=== PATIENT | male | born 1945 | race Caucasian/White ===

== ENCOUNTER 2017-11-11 11:09 | Outpatient (CLI) | payer MEDICARE, SELFPAY ==
[2017-11-11 14:28] LABS: Anion Gap 7.3 mmol/L (3-11); BUN 22 mg/dL (7-18); CO2 27.7 mmol/L (21.0-32.0); Calcium 8.9 mg/dL (8.5-10.1); Chloride 104 mmol/L (98-107); Cholesterol 205 mg/dL (50-200); Glucose 98 mg/dL (70-100); HDL Cholesterol 71 mg/dL (40-60); LDL CHOLESTEROL 119 mg/dL (<100); Potassium 4.3 mmol/L (3.5-5.1); Sodium 139 mmol/L (136-145); Triglyceride 157 mg/dL (30-150)
[2017-11-12 08:58] LABS: PSA, Diagnostic 4.1 ng/ml (0-6.5)
== END 2017-11-11 11:29 ==
PROVIDERS: PCP Emergency Medicine; Visit Provider Urology
DX: E78.5 Hyperlipidemia, unspecified (principal); Z86.39 Personal history of other endocrine, nutritional and metabolic disease; R97.20 Elevated prostate specific antigen [PSA]
CPT/HCPCS: 36415; 80048; 80061; 83721; 84153

== ENCOUNTER 2017-11-15 15:25 | Outpatient (CLI) | payer MEDICARE, OTHER, SELFPAY ==
--- NOTE | 2017-11-15 14:20 | DI.RAD_ITS ---
SYMPTOM/DIAGNOSIS: LOW BACK PAIN, M48.00, SPINAL STENOSIS, M54.9, DORSALGIA LUMBAR SPINE: AP, lateral and bilateral oblique views. Comparison MRI is 07/27/15. Comparison xray is 12/02/08. Findings: There is again seen L 5 spondylolysis and grade I-II spondylolisthesis of L 5 on S 1. There are five lumbar type vertebral bodies. There is mild narrowing of the disc spaces at all levels of the lumbar spine. Vacuum discs are present at L 1-2, 2-3 and 3-4. There are endplate osteophytes at all levels of the lumbar spine. Degenerative changes of the facets are present throughout the lumbar spine, most marked at L 3-4 through L 5-S 1. No acute fractures or subluxations are present. Calcification is seen of the abdominal aorta. Incidental note is made of a right total hip replacement. IMPRESSION: Moderate degenerative changes throughout the lumbar spine. L 5 spondylolysis and grade I-II spondylolisthesis of L 5 on S 1.
== END 2017-11-15 15:45 ==
PROVIDERS: PCP Emergency Medicine; Visit Provider Emergency Medicine
DX: M54.5 Low back pain (principal); M48.07 Spinal stenosis, lumbosacral region; M47.817 Spondylosis without myelopathy or radiculopathy, lumbosacral region; M43.06 Spondylolysis, lumbar region; M43.17 Spondylolisthesis, lumbosacral region
CPT/HCPCS: 72110

== ENCOUNTER 2018-02-28 16:14 | Outpatient (REF) | payer MEDICARE, OTHER, SELFPAY ==
--- NOTE | 2018-02-28 14:20 | SKI_PTH ---
PATIENT: Arya Kaur LOC: [facility] U#:[id number] AGE/SX: 73/M ROOM: RE02/28/[address]: Parker Singletary DO : 1945 BED: DIS: 02/28/2018 SPEC #: [id number] RECD: 03/03/18 12:25 STATUS: AGUEDA ARTHUR #: [id number] IVONNE: 02/28/18 14:[address]: Parker Singletary DEPT: Surgical Specimen RECD BY: Chelsea Valenzuela Tissues: 1 - SKIN BIOPSY(SHAVE/PUNCH) Procedures: SKIN LEVEL 4 SPECIAL STAIN 1 Comments: [id number]
== END 2018-02-28 16:34 ==
LOC: LBN 16:14
PROVIDERS: PCP Emergency Medicine; Visit Provider Emergency Medicine
DX: L30.8 Other specified dermatitis (principal); L30.0 Nummular dermatitis
CPT/HCPCS: 88305; 88312

== ENCOUNTER 2018-03-08 11:19 | Emergency (ER) | payer MEDICARE, OTHER, SELFPAY ==
[2018-03-08 11:27] VITALS: BP 153/74; PULSE 64; RESP 16; TEMP 37; O2SAT 99
--- NOTE | 2018-03-08 11:33 | W.ED.GENAD ---
Discharge Plan Disposition Patient Disposition: HOME Condition: Fair Discharge Details Chief Complaint: EyeProblem Clinical Impression: Subconjunctival hemorrhage Primary Care Provider: Parker Singletary ED Provider: Mari Albrecht Home Meds and New Rx's Prescriptions: Continued tadalafil [Cialis] 10 MG tablet 10 mg PO PRN RF: 0 lisinopril 20 MG tablet 1.5 tab PO DAILY Qty: 135 RF: 4 amoxicillin 500 MG tablet 2 g PO ONCE Qty: 4 RF: 1 Varicella-Zoster Ge/As01b/Pf [Shingrix Vial Kit] 50 MCG/0.5 ML kit 50 mcg IM twice Qty: 2 RF: 1 allopurinol 100 mg tablet 100 mg PO DAILY Qty: 90 RF: 3 pravastatin [Pravachol] 20 mg tablet 20 mg PO DAILY Qty: 90 RF: 3 amlodipine 5 mg tablet 5 mg PO DAILY Qty: 90 RF: 3 triamcinolone acetonide 0.5 % ointment 1 applic TP BID Qty: 15 RF: 5 Discharge Instructions Instructions: Subconjunctival Hemorrhage (ED) Additional Instructions: Please contact [facility] on Saturday to schedule follow-up appointment this week to have your vision reassessed and further evaluation of your eye. If you develop eye pain, discharge, or change in your vision, headaches or other new/worsening symptoms please seek care urgently once again. Otherwise, this is a benign process that should absorb with time Referrals: Parker Singletary, [Primary Care Provider] - Discharge Data Discharge Date/Time-TO BE ENTERED AT DEPARTURE: 03/08/18 11:55 Medical Decision Making Patient is a 73-year-old male, coming by his , chief complaint of erythema to the left eye. He reports that he noticed this slightly yesterday but has greatly increased today. Denies any visual changes. Denies any pain in the eye. Denies any trauma. States that this came on after lifting a large amount of heavy snow. Denies any bleeding elsewhere, no hematuria, melena, bleeding of the gums. Is not anticoagulated. States that the eye has been slightly teary but otherwise asymptomatic. Has not been itchy or irritated patient does wear glasses at baseline. On exam, pupils are equal round and reactive. He does have a subconjunctival hemorrhage to the left eye along the medial aspect. No swelling is noted. Extraocular movements are intact with no discomfort elicited. Posterior chambers unremarkable, no hemorrhage in the anterior chamber. Visual acuity performed by nursing staff, left eye was noted to be worse than the right. However, we did have a baseline for the patient. She is not objectively noting his vision to be worse, is not having any discomfort, blurred vision, signs of infection, and low suspicion for acute ocular emergency. Rather, I feel the patient has a subconjunctival hemorrhage. I would like him to follow-up with his tailor garment fitter this week for reevaluation to reassess his vision. Patient was given information on subconjunctival hemorrhage when to seek care urgently once again. All his questions and concerns were addressed and he is in agreement this plan. HPI General Mode of arrival: ambulatory. Date/Time Provider Initiated Documentation: 03/08/18 11:31. Limitations to Documentation: no limitations. Information obtained by: patient and family. History of Present Illness 73 year old M presents to the emergency department with the chief complaint of redness left eye, described as mild (no pain), and is localized to the eyes. Patient started experiencing this day(s) (1) and it has been constant. No relieving factors improve symptom(s), No exacerbating factors reported . Patient notes denies chest pain, cough, fever/chills, loss of appetite, rash, shortness of breath and other (denies visual changes). Patient did receive the following treatments prior to arrival, none Related Data Home Medications Medication Instructions Recorded Confirmed tadalafil [Cialis] 10 mg PO PRN 07/22/12 03/10/18 lisinopril 1.5 tab PO DAILY #135 tab-cap 10/16/16 03/10/18 amoxicillin 2 g PO ONCE #4 tab-cap 06/10/17 03/10/18 allopurinol 100 mg tablet 100 mg PO DAILY #90 tab 10/22/17 03/10/18 pravastatin 20 mg tablet 20 mg PO DAILY #90 tab 10/22/17 03/10/18 amlodipine 5 mg tablet 5 mg PO DAILY #90 tab 10/23/17 03/10/18 triamcinolone acetonide 0.5 % 1 applic TP BID #15 gm 03/06/18 03/10/18 topical ointment Previous Rx's Medication Instructions Recorded amoxicillin 2 g PO ONCE #4 tab-cap 06/10/17 allopurinol 100 mg tablet 100 mg PO DAILY #90 tab 10/22/17 pravastatin 20 mg tablet 20 mg PO DAILY #90 tab 10/22/17 amlodipine 5 mg tablet 5 mg PO DAILY #90 tab 10/23/17 triamcinolone acetonide 0.5 % 1 applic TP BID #15 gm 03/06/18 topical ointment Allergies Allergy/AdvReac Type Severity Reaction Status Date / Time No Known Allergies Allergy Verified 03/10/18 13:46 General Stated Complaint: EyeProblem CARMEN: 4 Review of Systems Constitutional Reports as per HPI, Denies chills, Denies fever(s) and Denies headache(s) Eyes Reports as per HPI, Denies blurry vision, Denies change in vision, Denies diplopia, Denies eye discharge, Denies floaters, Denies irritation, Denies itchy eyes, Denies loss of peripheral vision, Denies eye pain, Reports requires corrective lenses, Denies seeing flashes and Denies photophobia ENT Denies headache(s) Cardiovascular Reports as per HPI, Denies chest pain and Denies dyspnea Respiratory Denies cough and Denies dyspnea Gastrointestinal Reports as per HPI, Denies abdominal pain, Denies change in bowel habits, Denies nausea and Denies vomiting Integumentary/Breasts Reports as per HPI and Denies rash Neurologic Denies headache(s) Allergic/Immunologic Denies itchy eyes [facility] Medical History Tubular adenoma of colon (Acute 04/22/17) Spinal stenosis (Acute) Sensorineural hearing loss (Acute 12/20/14) Raised prostate specific antigen (Acute) Primary osteoarthritis of right hip (Acute 11/07/15) Mixed conductive and sensorineural hearing loss of right ear (Acute 12/20/14) Malignant neoplasm of skin (Acute) Hyperlipidemia (Acute) History of tobacco use (Acute) Hiatal hernia (Acute) Hemorrhoids (Acute) History of tobacco use (Acute) Gout (Acute) Essential hypertension (Acute 01/27/13) Surgical History Appendectomy Arthroplasty of knee (~1997) Back surgery Colonoscopy - MAC (04/22/17) Skin Cancer Removal Total replacement of hip Vasectomy Family History Mother No problems noted. Father Heart disease Neoplasm Brother No problems noted. Son No problems noted. Son No problems noted. Daughter No problems noted. Daughter No problems noted. Social History current occupational status: employed current occupation: Professor pets and animals: Yes pets and animals: cat(s) and dog(s) frequency: 1-2 times per week duration: 45-60 minutes/day Smoking/Tobacco Use Status: Former Tobacco Use passive smoking exposure: No alcohol intake: current alcohol intake frequency: 0-2 drinks per day substance use type: does not use special cortes needs: No Exam Const General: cooperative, healthy appearing, comfortable, no acute distress, well developed and well groomed Nutritional Appearance: average body habitus and well nourished Orientation: alert and awake HENMT Head: normal to inspection, normocephalic and atraumatic Ears: hearing grossly normal bilaterally, external ears normal and TM's normal bilaterally General nose exam: external nose normal and nares normal Face and sinus: normal facial exam, sinuses nontender and face symmetric Mouth: oral mucosae normal, lip normal, tongue normal, oropharynx normal and moist mucous membranes Teeth and gingiva: dentition normal Throat: posterior oropharynx normal, tonsils normal and uvula midline Eyes Visual Meehan: normal visual meehan by confrontation Alignment and Position: alignment normal Periorbital: periorbital findings normal Eyelids: eyelids normal Conjunctivae: conjunctival abnormality left subconjunctival hemorrhage (medial inferior aspect) Cornea: corneas normal Pupils: PERRL, normal by confrontation and accommodation normal EOM: EOM intact bilaterally Direct ophthalmoscopy: normal light reflex, no papilledema, fundi normal bilaterally and anterior chamber normal Neck Neck: normal visual inspection, full ROM, no lymphadenopathy and no meningeal signs Resp Effort & Inspection: normal respiratory effort, able to speak in complete sentences and no respiratory distress Auscultation: clear to auscultation bilaterally, no rales, no rhonchi and no wheezes Cardio Rate: regular rate Rhythm: regular rhythm Heart Sounds: S1 normal and S2 normal Skin General skin exam: no rashes or lesions noted Neuro General: alert and awake Cognition: normal cognition Speech: speech normal Gait: normal gait Psych Appearance: grossly normal and well kempt Mental Status: mental status grossly normal Speech and Movement: speech and movement normal Course Vital Signs Temperature 37 C 03/08/18 11:27 Pulse 64 03/08/18 11:27 Respiratory Rate 16 03/08/18 11:27 Blood Pressure 153/74 H 03/08/18 11:27 Pulse Oximetry 99 03/08/18 11:27 Temperature 37 C 03/08/18 11:27 Temperature Source Temporal Artery Scan 03/08/18 11:27 Pulse 64 03/08/18 11:27 Respiratory Rate 16 03/08/18 11:27 Blood Pressure 153/74 H 03/08/18 11:27 Blood Pressure Position Sitting 03/08/18 11:27 Pulse Oximetry 99 03/08/18 11:27 Oxygen Delivery Method Room Air 03/08/18 11:27 Oxygen Flow Rate 0 03/08/18 11:27 Pain Level 0 03/08/18 11:27
--- NOTE | 2018-03-08 11:48 | ED.GENADUL_ITS ---
Discharge Plan Disposition Patient Disposition: HOME Condition: Fair Discharge Details Chief Complaint: EyeProblem Clinical Impression: Subconjunctival hemorrhage Primary Care Provider: Parker Singletary ED Provider: Mari Albrecht Home Meds and New Rx's Prescriptions: Continued tadalafil [Cialis] 10 MG tablet 10 mg PO PRN RF: 0 lisinopril 20 MG tablet 1.5 tab PO DAILY Qty: 135 RF: 4 amoxicillin 500 MG tablet 2 g PO ONCE Qty: 4 RF: 1 Varicella-Zoster Ge/As01b/Pf [Shingrix Vial Kit] 50 MCG/0.5 ML kit 50 mcg IM twice Qty: 2 RF: 1 allopurinol 100 mg tablet 100 mg PO DAILY Qty: 90 RF: 3 pravastatin [Pravachol] 20 mg tablet 20 mg PO DAILY Qty: 90 RF: 3 amlodipine 5 mg tablet 5 mg PO DAILY Qty: 90 RF: 3 triamcinolone acetonide 0.5 % ointment 1 applic TP BID Qty: 15 RF: 5 Discharge Instructions Instructions: Subconjunctival Hemorrhage (ED) Additional Instructions: Please contact [facility] on Saturday to schedule follow-up appointment this week to have your vision reassessed and further evaluation of your eye. If you develop eye pain, discharge, or change in your vision, headaches or other new/worsening symptoms please seek care urgently once again. Otherwise, this is a benign process that should absorb with time Referrals: Parker Singletary, [Primary Care Provider] - Discharge Data Discharge Date/Time-TO BE ENTERED AT DEPARTURE: 03/08/18 11:55 Medical Decision Making Patient is a 73-year-old male, coming by his , chief complaint of erythema to the left eye. He reports that he noticed this slightly yesterday but has greatly increased today. Denies any visual changes. Denies any pain in the eye. Denies any trauma. States that this came on after lifting a large amount of heavy snow. Denies any bleeding elsewhere, no hematuria, melena, bleeding of the gums. Is not anticoagulated. States that the eye has been slightly teary but otherwise asymptomatic. Has not been itchy or irritated patient does wear glasses at baseline. On exam, pupils are equal round and reactive. He does have a subconjunctival hemorrhage to the left eye along the medial aspect. No swelling is noted. Extraocular movements are intact with no discomfort elicited. Posterior andrew mbers unremarkable, no hemorrhage in the anterior chamber. Visual acuity performed by nursing staff, left eye was noted to be worse than the right. However, we did have a baseline for the patient. She is not objectively noting his vision to be worse, is not having any discomfort, blurred vision, signs of infection, and low suspicion for acute ocular emergency. Rather, I feel the patient has a subconjunctival hemorrhage. I would like him to follow-up with his health assessment and treatment teacher this week for reevaluation to reassess his vision. Patient was given information on subconjunctival hemorrhage when to seek care urgently once again. All his questions and concerns were addressed and he is in agreement this plan. HPI General Mode of arrival: ambulatory . Date/Time Provider Initiated Documentation: 03/08/18 11:31 . Limitations to Documentation: no limitations . Information obtained by: patient and family . History of Present Illness 73 year old M presents to the emergency department with the chief complaint of redness left eye, described as mild (no pain), and is localized to the eyes. Patient started experiencing this day(s) (1) and it has been constant. No relieving factors improve symptom(s), No exacerbating factors reported . Patient notes denies chest pain, cough, fever/chills, loss of appetite, rash, shortness of breath and other (denies visual changes). Patient did receive the following treatments prior to arrival, none Related Data Home Medications Medication Instructions Recorded Confirmed tadalafil [Cialis] 10 mg PO PRN 07/22/12 03/10/18 lisinopril 1.5 tab PO DAILY #135 tab-cap 10/16/16 03/10/18 amoxicillin 2 g PO ONCE #4 tab-cap 06/10/17 03/10/18 allopurinol 100 mg tablet 100 mg PO DAILY #90 tab 10/22/17 03/10/18 pravastatin 20 mg tablet 20 mg PO DAILY #90 tab 10/22/17 03/10/18 amlodipine 5 mg tablet 5 mg PO DAILY #90 tab 10/23/17 03/10/18 triamcinolone acetonide 0.5 % 1 applic TP BID #15 gm 03/06/18 03/10/18 topical ointment Previous Rx's Medication Instructions Recorded amoxicillin 2 g PO ONCE #4 tab-cap 06/10/17 allopurinol 100 mg tablet 100 mg PO DAILY #90 tab 10/22/17 pravastatin 20 mg tablet 20 mg PO DAILY #90 tab 10/22/17 amlodipine 5 mg tablet 5 mg PO DAILY #90 tab 10/23/17 triamcinolone acetonide 0.5 % 1 applic TP BID #15 gm 03/06/18 topical ointment Allergies Allergy/AdvReac Type Severity Reaction Status Date / Time No Known Allergies Allergy Verified 03/10/18 13:46 General Stated Complaint: EyeProblem CARMEN: 4 Review of Systems Constitutional Reports as per HPI, Denies chills, Denies fever(s) and Denies headache(s) Eyes Reports as per HPI, Denies blurry vision, Denies change in vision, Denies diplopia, Denies eye discharge, Denies floaters, Denies irritation, Denies itchy eyes, Denies loss of peripheral vision, Denies eye pain, Reports requires corrective lenses, Denies seeing flashes and Denies photophobia ENT Denies headache(s) Cardiovascular Reports as per HPI, Denies chest pain and Denies dyspnea Respiratory Denies cough and Denies dyspnea Gastrointestinal Reports as per HPI, Denies abdominal pain, Denies change in bowel habits, Denies nausea and Denies vomiting Integumentary/Breasts Reports as per HPI and Denies rash Neurologic Denies headache(s) Allergic/Immunologic Denies itchy eyes [facility] Medical History Tubular adenoma of colon (Acute 04/22/17) Spinal stenosis (Acute) Sensorineural hearing loss (Acute 12/20/14) Raised prostate specific antigen (Acute) Primary osteoarthritis of right hip (Acute 11/07/15) Mixed conductive and sensorineural hearing loss of right ear (Acute 12/20/14) Malignant neoplasm of skin (Acute) Hyperlipidemia (Acute) History of tobacco use (Acute) Hiatal hernia (Acute) Hemorrhoids (Acute) History of tobacco use (Acute) Gout (Acute) Essential hypertension (Acute 01/27/13) Surgical History Appendectomy Arthroplasty of knee (~1997) Back surgery Colonoscopy - MAC (04/22/17) Skin Cancer Removal Total replacement of hip Vasectomy Family History Mother No problems noted. Father Heart disease Neoplasm Brother No problems noted. Son No problems noted. Son No problems noted. Daughter No problems noted. Daughter No problems noted. Social History current occupational status: employed current occupation: Professor pets and animals: Yes pets and animals: cat(s) and dog(s) frequency: 1-2 times per week duration: 45-60 minutes/day Smoking/Tobacco Use Status: Former Tobacco Use passive smoking exposure: No alcohol intake: current alcohol intake frequency: 0-2 drinks per day substance use type: does not use special cortes needs: No Exam Const General: cooperative, healthy appearing, comfortable, no acute distress, well developed and well groomed Nutritional Appearance: average body habitus and well nourished Orientation: alert and awake HENMT Head: normal to inspection, normocephalic and atraumatic Ears: hearing grossly normal bilaterally, external ears normal and TM's normal bilaterally General nose exam: external nose normal and nares normal Face and sinus: normal facial exam, sinuses nontender and face symmetric Mouth: oral mucosae normal, lip normal, tongue normal, oropharynx normal and moist mucous membranes Teeth and gingiva: dentition normal Throat: posterior oropharynx normal, tonsils normal and uvula midline Eyes Visual Meehan: normal visual meehan by confrontation Alignment and Position: alignment normal Periorbital: periorbital findings normal Eyelids: eyelids normal Conjunctivae: conjunctival abnormality left subconjunctival hemorrhage (medial inferior aspect) Cornea: corneas normal Pupils: PERRL, normal by confrontation and accommodation normal EOM: EOM intact bilaterally Direct ophthalmoscopy: normal light reflex, no papilledema, fundi normal bilaterally and anterior chamber normal Neck Neck: normal visual inspection, full ROM, no lymphadenopathy and no meningeal signs Resp Effort & Inspection: normal respiratory effort, able to speak in complete sentences and no respiratory distress Auscultation: clear to auscultation bilaterally, no rales, no rhonchi and no wheezes Cardio Rate: regular rate Rhythm: regular rhythm Heart Sounds: S1 normal and S2 normal Skin General skin exam: no rashes or lesions noted Neuro General: alert and awake Cognition: normal cognition Speech: speech normal Gait: normal gait Psych Appearance: grossly normal and well kempt Mental Status: mental status grossly normal Speech and Movement: speech and movement normal Course Vital Signs Temperature 37 C 03/08/18 11:27 Pulse 64 03/08/18 11:27 Respiratory Rate 16 03/08/18 11:27 Blood Pressure 153/74 H 03/08/18 11:27 Pulse Oximetry 99 03/08/18 11:27 Temperature 37 C 03/08/18 11:27 Temperature Source Temporal Artery Scan 03/08/18 11:27 Pulse 64 03/08/18 11:27 Respiratory Rate 16 03/08/18 11:27 Blood Pressure 153/74 H 03/08/18 11:27 Blood Pressure Position Sitting 03/08/18 11:27 Pulse Oximetry 99 03/08/18 11:27 Oxygen Delivery Method Room Air 03/08/18 11:27 Oxygen Flow Rate 0 03/08/18 11:27 Pain Level 0 03/08/18 11:27
== END 2018-03-08 11:55 | disposition home or self-care (01) ==
PROVIDERS: Emergency Provider Physician Assistant; PCP Emergency Medicine
DX: H11.32 Conjunctival hemorrhage, left eye (principal)
CPT/HCPCS: 99282

== ENCOUNTER 2018-03-12 10:44 | Outpatient (CLI) | payer MEDICARE, OTHER, SELFPAY ==
[2018-03-12 11:06] LABS: Absolute Basophil Count 0.02 k/cumm (0.0-0.2); Absolute Eosinophil Count 0.09 k/cumm (0.0-0.7); Absolute Lymphocyte Count 1.45 k/cumm (1.2-3.4); Absolute Neutrophil Count 3.19 k/cumm (1.2-6.7); Basophils % 0.4; Eosinophils % 1.7; HCT 41.8 % (40.0-50.0); HGB 14.2 g/dL (13.5-17.5); Lymphocytes % 27.1; Mean Corpuscular Hemoglobin 30.5 pg (27.0-33.0); Mean Corpuscular Volume 89.9 fL (80-95); Mean Platelet Volume 10.6 fL (8.0-11.0); Monocytes % 11.2; Neutrophils % 59.6; Platelet Count 167 x1000/uL (130-400); RBC 4.65 m/cumm (4.50-6.00); RBC Distribution Width 13.9 % (11.8-14.1); White Blood Cell Count 5.35 k/cumm (4.4-10.8)
[2018-03-12 11:20] LABS: PTT Activated 24.2 sec (21.0-31.4); Prothrombin Time 9.6 sec (9.3-11.0)
[2018-03-12 11:42] LABS: ESR 12 MM/HR (1-20)
[2018-03-12 11:55] LABS: ALT 41 U/L (12-78); AST 30 U/L (15-37); Albumin 4.2 g/dL (3.4-5.0); Alkaline Phosphatase 77 U/L (46-116); Anion Gap 8.6 mmol/L (3-11); BUN 22 mg/dL (7-18); Bilirubin, Total 0.4 mg/dL (0.2-1.0); CO2 29.4 mmol/L (21.0-32.0); CREATININE 0.91 mg/dL (0.70-1.30); Calcium 9.8 mg/dL (8.5-10.1); Chloride 103 mmol/L (98-107); Glucose 95 mg/dL (70-100); Potassium 4.2 mmol/L (3.5-5.1); Sodium 141 mmol/L (136-145); Total Protein 7.6 g/dL (6.4-8.2)
== END 2018-03-12 11:04 ==
PROVIDERS: PCP Emergency Medicine; Visit Provider Internal Medicine
DX: D64.9 Anemia, unspecified (principal); I10 Essential (primary) hypertension; E78.5 Hyperlipidemia, unspecified; R42 Dizziness and giddiness; R41.3 Other amnesia; H11.32 Conjunctival hemorrhage, left eye
CPT/HCPCS: 36415; 80053; 85652; 84443; 85025; 85610; 85730

== ENCOUNTER 2018-03-13 00:47 | Outpatient (CLI) | payer MEDICARE, OTHER, SELFPAY ==
--- NOTE | 2018-03-13 13:30 | DI.CT_ITS ---
SYMPTOM/DIAGNOSIS: ? TIA, MEMORY LOSS, R41.[address]: There are no prior comparison exams. No intracranial hemorrhage, mass or infarct is seen. There is mild frontal atrophy. The ventricles are normal in size. There are no visible white matter changes. There is no evidence of skull fracture. The sinuses and mastoid air cells appear clear where visualized. IMPRESSION: Negative head CT. CTA HEAD AND NECK: CT angiography was performed with multi slice acquisition and multi planar and 3D reconstruction. Images were performed from the aortic arch through the skull vertex after IV contrast. The proximal left common artery is quite tortuous. There is calcification at the left common carotid bulb but no significant stenosis. There is a small amount of calcification at the proximal left internal carotid artery. The proximal portion of the left internal carotid artery is also quite tortuous. There is calcification at the origin of both vertebral arteries. The left vertebral artery is quite tortuous proximally. No stenosis, occlusion or dissection is seen. There is mild calcification of the left common carotid artery and at the left common carotid bulb. The proximal left internal carotid artery also shows mild calcification but no significant visible stenosis. The mid right internal carotid artery is tortuous. The [place] vasculature appears intact. The orbits are unremarkable. The lung apices are clear. The thyroid, submandibular and parotid glands are unremarkable. There are degenerative disc changes greatest at C 3-4 through C 5-6. Facet degenerative changes are also present. IMPRESSION: Mild scattered calcified plaque. No significant stenosis of the common, internal carotid arteries or vertebral arteries. The [place] vasculature appears intact.
[2018-03-13] MEDS: Omnipaque 350 MG/ML 100 ML BTL IJ (14:15)
[2018-03-13] MEDS: Normal Saline Flush 10 ML SYR IVP (14:16)
== END 2018-03-13 01:07 ==
PROVIDERS: PCP Emergency Medicine; Visit Provider Internal Medicine
DX: R41.3 Other amnesia (principal); I77.89 Other specified disorders of arteries and arterioles
CPT/HCPCS: 70496; 70498; J3490

== ENCOUNTER 2018-03-21 10:16 | Outpatient (CLI) | payer MEDICARE, OTHER, SELFPAY ==
[2018-03-21 13:23] LABS: Folate 16.5 ng/mL (8.6-20.0)
[2018-03-21 13:46] LABS: ESR 10 MM/HR (1-20)
[2018-03-21 14:03] LABS: Vitamin B12 441 pg/mL (193-986)
[2018-03-21 14:16] LABS: C-Reactive Protein 0.12 mg/dL (0.0-0.3)
[2018-03-24 12:35] LABS: Lyme Ab w Rflx to Lyme Confirm Negative
[2018-03-24 14:00] LABS: Albumin 61.7 % (55.8-66.1); Total Protein 7.1 g/dl (6.3-8.2)
== END 2018-03-21 10:36 ==
PROVIDERS: PCP Emergency Medicine; Visit Provider Emergency Medicine
DX: E11.9 Type 2 diabetes mellitus without complications (principal); G93.40 Encephalopathy, unspecified; R07.1 Chest pain on breathing; M25.50 Pain in unspecified joint
CPT/HCPCS: 36415; 85652; 82607; 82746; 83036; 84165; 86140; 86618

== ENCOUNTER 2018-03-28 01:43 | Outpatient (CLI) | payer MEDICARE, OTHER, SELFPAY ==
--- NOTE | 2018-03-28 08:43 | DI.MRI_ITS ---
SYMPTOM/DIAGNOSIS: ENCEPHALOPATHY, ? CEREBELLAR INFARCT, G93.40 BRAIN MRI: Pre and post contrast examination was performed. Comparison CT scan is 03/13/18. There is prominence of the ventricles and sulci consistent with the patient's age. The diffusion weighted images show no evidence of an acute infarct. The gradient images show no evidence of intracranial hemorrhage. No intracranial mass is identified. There is a normal flow void present in the [place]. The pituitary gland appears grossly unremarkable. The visualized paranasal sinuses are clear. The orbits and retro-orbital soft tissues are grossly unremarkable. Following contrast administration, no enhancing lesion is identified. IMPRESSION: No evidence of an intracranial mass or acute infarct.
[2018-03-28] MEDS: Gadoterate meglumine 20 ML VIAL 17 ML IVP (09:32)
== END 2018-03-28 02:03 ==
PROVIDERS: PCP Emergency Medicine; Visit Provider Emergency Medicine
DX: G93.40 Encephalopathy, unspecified (principal)
CPT/HCPCS: 70553

== ENCOUNTER 2018-04-02 00:44 | Outpatient (CLI) | payer MEDICARE, OTHER, SELFPAY ==
--- NOTE | 2018-04-02 07:30 | MERGE_ITS ---
*[facility]* *[facility]* [address] [place] [address] Date of study: 04/02/2018 Transthoracic Echocardiography M-mode, complete 2D, complete spectral Doppler, and color Doppler *STUDY CONCLUSIONS* Summary: 1. Left ventricle: The cavity size was normal. Systolic function was normal. The estimated ejection fraction was 55-60%. Diastolic parameters were normal. There was no evidence of elevated ventricular filling pressure by Doppler parameters. 2. Aortic valve: There was mild regurgitation. 3. Mitral valve: There was mild regurgitation. 4. Right ventricle: The cavity size was mildly dilated. Systolic function was normal. 5. Atrial septum: No defect or patent foramen ovale was identified. 6. Pulmonary arteries: Pulmonary systolic pressure was in the range of 25mm Hg to 35mm Hg. 7. Inferior vena cava: The vessel was patent and normal in size. The respirophasic diameter changes were in the normal range (greater than or equal to 50%), consistent with normal central venous pressure. *PATIENT PRESENTATION* Height: 180.3cm ((71in) ) S/D Pressure: 146 / 64 Weight: 81.6kg ((179.6lb) ) BSA: 2.03m^2 Test start time: 07:30 AM. Test stop time: 08:30 AM. CONSULTING Parker Singletary ORDERING Parker Singletary REFERRING Parker Singletary REFERRING Efren Navarrete PERFORMING Unknown PERFORMING [facility] GEOSPATIAL SYSTEMS INTEGRATOR RT Diana (R)(CT), OLIVIA *PROCEDURE DATA* Procedure information: The patient was identified by two identifiers. This study was interpreted by [facility]. Pertinent images and digital data are archived for permanent storage and are available for subsequent review. No prior study was available for comparison. Study status: Routine. Transthoracic echocardiography. M-mode, complete 2D, complete spectral Doppler, and color Doppler. A Transthoracic Echocardiogram was performed. Scanning was performed from the parasternal, apical, subcostal, and suprasternal notch acoustic windows. Images were obtained using an [id number] cardiac ultrasound machine. Image quality was good. Study completion: The patient tolerated the procedure well. History: PMH: Acute encephalopathy, shortness of breath. *CARDIAC ANATOMY* Left ventricle: The cavity size was normal. Systolic function was normal. The estimated ejection fraction was 55-60%. The tissue Doppler parameters were normal. Diastolic parameters were normal. There was no evidence of elevated ventricular filling pressure by Doppler parameters. Aortic valve: Trileaflet. Doppler: There was no stenosis. There was mild regurgitation. VTI ratio of LVOT to aortic valve: 0.65. Valve area (VTI): 2.3cm^2. Indexed valve area (VTI): 1.1cm^2/m^2. Peak velocity ratio of LVOT to aortic valve: 0.6. Valve area (Vmax): 2.1cm^2. Indexed valve area (Vmax): 1.1cm^2/m^2. Mean velocity ratio of LVOT to aortic valve: 0.63. Valve area (Vmean): 2.3cm^2. Indexed valve area (Vmean): 1.1cm^2/m^2. Mean gradient (S): 5.6mm Hg. Peak gradient (S): 10.1mm Hg. Aorta: Aortic root: The aortic root was normal in size. Ascending aorta: The ascending aorta was mildly dilated. Mitral valve: Doppler: There was no evidence for stenosis. There was mild regurgitation. Valve area by pressure half-time: 2.9cm^2. Indexed valve area by pressure half-time: 1.4cm^2/m^2. Left atrium: The atrium was normal in size. Atrial septum: No defect or patent foramen ovale was identified. Right ventricle: The cavity size was mildly dilated. Systolic function was normal. Pulmonic valve: Doppler: There was no evidence for stenosis. There was mild regurgitation. Peak gradient (S): 4.5mm Hg. Tricuspid valve: Doppler: There was mild regurgitation. Pulmonary artery: Poorly visualized. Pulmonary systolic pressure was in the range of 25mm Hg to 35mm Hg. Right atrium: The atrium was normal in size. Pericardium: There was no pericardial effusion. Systemic veins: Inferior vena cava: Well visualized. The vessel was patent and normal in size. The respirophasic diameter changes were in the normal range (greater than or equal to 50%), consistent with normal central venous pressure. Baseline ECG: Bradycardia. Measurements Left ventricle Value Reference LV ID, ED, PLAX 5.2 cm 3.5 - 6.0 LV ID, ES, PLAX 3.5 cm 2.1 - 4.0 LV PW thickness, ED, PLAX 0.9 cm LV end-diastolic volume, 1-p A2C 87 ml LV ejection fraction, 1-p A2C 56 % LV end-diastolic volume, 1-p A4C 131 ml LV ejection fraction, 1-p A4C 56 % LV e', lateral 0.098 m/sec LV E/e', lateral 6 LV e', medial 0.083 m/sec LV E/e', medial 7 LV e', average 0.09 m/sec LV E/e', average 6 Ventricular septum Value Reference IVS thickness, ED, PLAX 1.0 cm LVOT Value Reference LVOT ID, A-P 2.1 cm LVOT area 3.6 cm^2 LVOT peak velocity, S 0.96 m/sec LVOT mean velocity, S 0.71 m/sec LVOT VTI, S 23.3 cm LVOT peak gradient, S 3.7 mm Hg LVOT mean gradient, S 2.2 mm Hg Stroke volume (SV), LVOT DP 83 ml Stroke index (SV/bsa), LVOT DP 41 ml/m^2 Aortic valve Value Reference Aortic valve peak velocity, S 1.6 m/sec Aortic valve mean velocity, S 1.13 m/sec Aortic valve VTI, S 36.0 cm Aortic mean gradient, S 5.6 mm Hg Aortic peak gradient, S 10.1 mm Hg VTI ratio, LVOT/AV 0.65 Aortic valve area, VTI 2.3 cm^2 Velocity ratio, peak, LVOT/AV 0.6 Aortic valve area, peak velocity 2.1 cm^2 Velocity ratio, mean, LVOT/AV 0.63 Aortic valve area, mean velocity 2.3 cm^2 Aortic valve area/bsa, mean velocity 1.1 cm^2/m^2 Aortic regurg deceleration 400 cm/s^2 Aortic regurg pressure half-time 323 ms Aorta Value Reference Aortic root ID, ED 3.8 cm Ascending aorta ID, A-P, S 3.8 cm Left atrium Value Reference LA ID, A-P, ES 3.2 cm LA ID/bsa, A-P 1.6 cm/m^2 <=2.2 LA area, ES, A4C 19.6 cm^2 8.8 - 23.4 LA area, ES, A2C 18 cm^2 LA volume/bsa, ES, 1-p A4C 30 ml/m^2 LA volume, ES, 2-p 52 ml LA volume/bsa, ES, 2-p 26 ml/m^2 LA/aortic root ratio 0.85 Mitral valve Value Reference Mitral E-wave peak velocity 0.58 m/sec Mitral A-wave peak velocity 0.64 m/sec Mitral deceleration time (H) 261 ms 150 - 230 Mitral pressure half-time 76 ms Mitral E/A ratio, peak 0.91 Mitral valve area, PHT, DP 2.9 cm^2 Pulmonary veins Value Reference Pulmonary vein peak velocity, S 0.46 m/sec Pulmonary vein peak velocity, D 0.38 m/sec Pulmonary vein velocity ratio, peak, 1.23 S/D Pulmonary vein A-wave reversal peak 0.34 m/sec velocity Pulmonary vein A-wave reversal 177 ms duration Tricuspid valve Value Reference Tricuspid regurg peak velocity 2.5 m/sec Tricuspid peak RV-RA gradient 25.2 mm Hg Right atrium Value Reference RA area, ES, A4C 17 cm^2 8.3 - 19.5 Pulmonic valve Value Reference Pulmonic peak gradient, S 4.5 mm Hg Legend: (L) and (H) balwinder values outside specified reference range. I have personally reviewed the images and have reviewed and edited the reported findings. Electronically signed by Maxwell Lyon MD 04/02/2018 09:35
== END 2018-04-02 01:04 ==
PROVIDERS: PCP Emergency Medicine; Visit Provider Emergency Medicine
DX: R06.02 Shortness of breath (principal); G93.40 Encephalopathy, unspecified; R07.1 Chest pain on breathing; I08.0 Rheumatic disorders of both mitral and aortic valves
CPT/HCPCS: 93306

== ENCOUNTER 2018-05-12 10:43 | Outpatient (CLI) | payer MEDICARE, OTHER, SELFPAY ==
[2018-05-12 13:04] LABS: Absolute Basophil Count 0.03 k/cumm (0.0-0.2); Absolute Eosinophil Count 0.26 k/cumm (0.0-0.7); Absolute Lymphocyte Count 0.91 k/cumm (1.2-3.4); Absolute Monocyte Count 0.82 k/cumm (0.11-0.7); Absolute Neutrophil Count 3.73 k/cumm (1.2-6.7); Basophils % 0.5; Eosinophils % 4.5; HCT 40.7 % (40.0-50.0); HGB 13.5 g/dL (13.5-17.5); Lymphocytes % 15.8; Mean Corp. HGB Concentration 33.2 g/dL (32.0-36.0); Mean Corpuscular Hemoglobin 29.7 pg (27.0-33.0); Mean Corpuscular Volume 89.5 fL (80-95); Mean Platelet Volume 11.7 fL (8.0-11.0); Monocytes % 14.3; Neutrophils % 64.9; Platelet Count 170 x1000/uL (130-400); RBC 4.55 m/cumm (4.50-6.00); RBC Distribution Width 14.2 % (11.8-14.1); White Blood Cell Count 5.75 k/cumm (4.4-10.8)
[2018-05-12 14:02] LABS: ESR 10 MM/HR (1-20)
== END 2018-05-12 11:03 ==
PROVIDERS: PCP Emergency Medicine; Visit Provider Internal Medicine
DX: R50.9 Fever, unspecified (principal); J02.9 Acute pharyngitis, unspecified
CPT/HCPCS: 36415; 85652; 85025

== ENCOUNTER 2018-10-14 08:19 | Outpatient (CLI) | payer MEDICARE, OTHER, SELFPAY ==
[2018-10-14 11:45] LABS: TSH 2.08 uIU/mL (0.36-3.74); Vitamin B12 383 pg/mL (193-986)
== END 2018-10-14 08:39 ==
PROVIDERS: PCP Emergency Medicine; Visit Provider Emergency Medicine
DX: E03.9 Hypothyroidism, unspecified (principal); R20.2 Paresthesia of skin
CPT/HCPCS: 36415; 82607; 84443

== ENCOUNTER 2018-12-09 13:39 | Outpatient (CLI) | payer MEDICARE, OTHER, SELFPAY ==
[2018-12-10 10:25] LABS: PSA, Diagnostic 4.2 ng/ml (0-6.5)
== END 2018-12-09 13:59 ==
PROVIDERS: PCP Emergency Medicine; Visit Provider Urology
DX: R97.20 Elevated prostate specific antigen [PSA] (principal)
CPT/HCPCS: 36415; 84153

== ENCOUNTER 2019-12-01 14:08 | Outpatient (REF) | payer MEDICARE, OTHER, SELFPAY ==
[2019-12-01 14:59] LABS: Anion Gap 6.7 mmol/L (3-11); BUN 19 mg/dL (7-18); CO2 30.3 mmol/L (21.0-32.0); CREATININE 0.95 mg/dL (0.70-1.30); Calcium 9.3 mg/dL (8.5-10.1); Chloride 102 mmol/L (98-107); Glucose 167 mg/dL (74-106); Potassium 4.1 mmol/L (3.5-5.1); Sodium 139 mmol/L (136-145)
== END 2019-12-01 14:28 ==
LOC: LBN 14:08
PROVIDERS: PCP Emergency Medicine; Visit Provider Emergency Medicine
DX: I10 Essential (primary) hypertension (principal)
CPT/HCPCS: 80048

== ENCOUNTER 2019-12-04 02:08 | Outpatient (CLI) | payer MEDICARE, OTHER, SELFPAY ==
[2019-12-04 16:29] LABS: Hemoglobin A1C 5.9 % (<5.7)
== END 2019-12-04 02:28 ==
PROVIDERS: PCP Emergency Medicine; Visit Provider Emergency Medicine
DX: E11.9 Type 2 diabetes mellitus without complications (principal)
CPT/HCPCS: 36415; 83036

== ENCOUNTER → 2019-12-17 08:55 | Outpatient (BNVA) | payer MEDICARE, OTHER, SELFPAY | PROVIDERS: PCP Emergency Medicine; Referring Provider Emergency Medicine; Visit Provider Surgery | DX: N50.812 Left testicular pain (principal); K46.9 Unspecified abdominal hernia without obstruction or gangrene | CPT/HCPCS: 99213 ==

== ENCOUNTER 2019-12-23 01:49 | Outpatient (CLI) | payer MEDICARE, OTHER, SELFPAY ==
--- NOTE | 2019-12-23 06:45 | DI.US_ITS ---
EXAM: US SCROTUM CLINICAL HISTORY: Also evaluate for recurrent hernia,LT TESTICULAR PAIN,N50.812. TECHNIQUE: Scrotal ultrasound performed using grayscale, color-flow and spectral Doppler analysis. COMPARISON: No exams were available for comparison FINDINGS: Right testicle: 3.7 x 2.2 x 2.1 cm Echogenicity: Normal. Contour: Smooth. Mass: None seen. Microlithiasis: None. Hydrocele: 4.3 x 2.3 x 2.5 cm hydrocele. Variocele: None. Hernia: No peristalsing bowel loop identified. Epididymis: 0.6 x 0.4 x 0.5 cm epididymal head simple cyst otherwise unremarkable. Left testicle: 3 x 2.6 x 2.1 cm Echogenicity: Normal. Contour: Smooth. Mass: None seen. Microlithiasis: None. Hydrocele: 1.8 x 1.7 x 1.9 cm hydrocele. Variocele: None. Hernia: No peristalsing bowel loop identified. Epididymis: Normal. DOPPLER: Color: Symmetric and uniform, no hyperemia. Duplex: Bilateral testicular arterial waveforms visualized. There appears to be a fat containing left inguinal hernia. IMPRESSION: 1. Normal appearing bilateral testicles. 2. Bilateral hydroceles. Right greater than left. 3. Findings suggestive of a fat containing left inguinal hernia. A CT scan of the pelvis may be cons idered for further evaluation. DATA REPOSITORY:
== END 2019-12-23 02:09 ==
PROVIDERS: PCP Emergency Medicine; Visit Provider Surgery
DX: N43.3 Hydrocele, unspecified (principal); N50.812 Left testicular pain
CPT/HCPCS: 76870

== ENCOUNTER 2020-01-11 03:31 | Outpatient (CLI) | payer MEDICARE, OTHER, SELFPAY ==
[2020-01-11 21:56] LABS: PSA, Diagnostic 5.1 ng/mL (0.0-6.5)
== END 2020-01-11 03:51 ==
PROVIDERS: PCP Emergency Medicine; Visit Provider Urology
DX: R97.20 Elevated prostate specific antigen [PSA] (principal)
CPT/HCPCS: 36415; 84153

== ENCOUNTER 2020-05-03 03:44 | Outpatient (CLI) | payer MEDICARE, OTHER, SELFPAY ==
[2020-05-03 18:30] LABS: PSA, Diagnostic 4.6 ng/mL (0.0-6.5)
== END 2020-05-03 03:45 | disposition home or self-care (01) ==
LOC: LBO 03:44
PROVIDERS: PCP Emergency Medicine; Visit Provider Urology
DX: N40.1 Benign prostatic hyperplasia with lower urinary tract symptoms (principal)
CPT/HCPCS: 36415; 84153

== ENCOUNTER 2021-03-07 04:19 | Outpatient (CLI) | payer MEDICARE, SELFPAY ==
[2021-03-07 13:22] LABS: Anion Gap 7.3 mmol/L (3-11); BUN 18 mg/dL (7-18); CO2 27.7 mmol/L (21.0-32.0); CREATININE 0.9 mg/dL (0.70-1.30); Calcium 9.5 mg/dL (8.5-10.1); Chloride 104 mmol/L (98-107); Glucose 92 mg/dL (74-106); Potassium 4.5 mmol/L (3.5-5.1); Sodium 139 mmol/L (136-145)
== END 2021-03-07 04:20 | disposition home or self-care (01) ==
LOC: LBO 04:19
PROVIDERS: PCP Emergency Medicine; Visit Provider Emergency Medicine
DX: I10 Essential (primary) hypertension (principal)
CPT/HCPCS: 36415; 80048

== ENCOUNTER 2021-04-26 02:46 | Outpatient (CLI) | payer MEDICARE, SELFPAY ==
[2021-04-26 10:37] LABS: Anion Gap 5.2 mmol/L (3-11); BUN 22 mg/dL (7-18); CO2 28.8 mmol/L (21.0-32.0); Calcium 9.3 mg/dL (8.5-10.1); Chloride 102 mmol/L (98-107); Glucose 95 mg/dL (74-106); Potassium 4.9 mmol/L (3.5-5.1); Sodium 136 mmol/L (136-145)
== END 2021-04-26 02:47 | disposition home or self-care (01) ==
LOC: LBO 02:46
PROVIDERS: PCP Family Medicine; Visit Provider Emergency Medicine
DX: I10 Essential (primary) hypertension (principal)
CPT/HCPCS: 36415; 80048

== ENCOUNTER 2021-06-21 01:36 | Outpatient (CLI) | payer MEDICARE, SELFPAY | END 2021-06-21 01:37 | disposition home or self-care (01) | LOC: LBO 01:36 | PROVIDERS: PCP Family Medicine; Visit Provider Urology ==

== ENCOUNTER 2021-06-23 02:57 | Outpatient (CLI) | payer MEDICARE, SELFPAY | END 2021-06-23 02:58 | disposition home or self-care (01) | LOC: LBO 02:57 | PROVIDERS: PCP Family Medicine; Visit Provider Urology ==

== ENCOUNTER 2021-06-26 16:19 | Outpatient (CLI) | payer MEDICARE, SELFPAY ==
[2021-06-26 18:03] LABS: PSA, Diagnostic 4.6 ng/mL (<=6.5)
== END 2021-06-26 16:20 | disposition home or self-care (01) ==
LOC: LBO 16:21
PROVIDERS: PCP Family Medicine; Visit Provider Urology
DX: R97.20 Elevated prostate specific antigen [PSA] (principal)
CPT/HCPCS: 36415; 84153

== ENCOUNTER 2021-08-17 04:15 | Outpatient (CLI) | payer MEDICARE, SELFPAY ==
[2021-08-17 08:34] LABS: Calculated LDL 76 mg/dL (<100); Cholesterol 158 mg/dL (<200); HDL Cholesterol 70 mg/dL (40-60); Triglyceride 64 mg/dL (<150)
== END 2021-08-17 04:16 | disposition home or self-care (01) ==
LOC: LBO 04:15
PROVIDERS: PCP Family Medicine; Visit Provider Family Medicine
DX: E78.5 Hyperlipidemia, unspecified (principal)
CPT/HCPCS: 36415; 80061

== ENCOUNTER 2022-07-23 09:27 | Outpatient (CLI) | payer MEDICARE, SELFPAY ==
[2022-07-23 12:47] LABS: ALT 33 U/L (16-63); AST 21 U/L (15-37); Albumin 4.1 g/dL (3.4-5.0); Alkaline Phosphatase 67 U/L (46-116); Anion Gap 6.8 mmol/L (3-11); BUN 20 mg/dL (7-18); Bilirubin, Total 0.6 mg/dL (0.2-1.0); CO2 28.2 mmol/L (21.0-32.0); CREATININE 1.1 mg/dL (0.70-1.30); Calcium 9.6 mg/dL (8.5-10.1); Calculated LDL 65 mg/dL (<100); Chloride 105 mmol/L (98-107); Cholesterol 145 mg/dL (<200); Estimated GFR 68.29 (mL/min/1.73m2); Glucose 118 mg/dL (74-106); HDL Cholesterol 70 mg/dL (40-60); Potassium 4.6 mmol/L (3.5-5.1); Sodium 140 mmol/L (136-145); Total Protein 7.9 g/dL (6.4-8.2); Triglyceride 50 mg/dL (<150)
== END 2022-07-23 09:28 | disposition home or self-care (01) ==
LOC: LOS 09:27
PROVIDERS: PCP Family Medicine; Visit Provider Family Medicine
DX: I10 Essential (primary) hypertension (principal); E78.5 Hyperlipidemia, unspecified
CPT/HCPCS: 36415; 80053; 80061

== ENCOUNTER → 2023-01-14 02:48 | Outpatient (CLI) | payer MEDICARE, SELFPAY ==
--- NOTE | 2023-01-14 07:00 | DI.US_ITS ---
Exam(s) US ABDOMEN EXAM: US ABDOMEN CLINICAL HISTORY: belching and persistent diarrhea,R19.7,R14.2 TECHNIQUE: Ultrasound of complete upper abdomen performed using standard protocol. COMPARISON: US US SCROTUM from 12/23/2019 FINDINGS: There is no ascites evident. LIVER: There are no hepatic lesions evident nor obvious dilatation of intrahepatic ducts. GALLBLADDER/BILIARY: There are no gallstones. No gallbladder wall edema nor pericholecystic fluid. The common hepatic duct isnot dilated, measuring 3-4mm at the level of kelsy hepatis. PANCREAS: There is no evidence of pancreatic mass nor dilatation of the pancreatic duct. SPLEEN: The spleen is not enlarged and there are no intrasplenic lesions evident. KIDNEYS:Kidneys exhibit normal size with no evidence of solid mass, calculus, nor hydronephrosis. No cortical cysts evident. ABDOMINAL AORTA: There is no evidence of abdominal aortic aneurysm. IVC: Normal diameter where visualized. IMPRESSION: 1. No evidence of cholelithiasis nor dilatation of the biliary tree. 2. No other significant ultrasound findings in the upper abdomen. 3. There is no ascites. DATA REPOSITORY:
--- NOTE | 2023-01-14 09:21 | DI.RAD_ITS ---
Exam(s) XR LUMBAR SPINE COMPLETE EXAM: XR LUMBAR SPINE COMPLETE CLINICAL HISTORY: BACK PAIN,M54.5. TECHNIQUE: 2D digital imaging was performed. COMPARISON: No exams were available for comparison FINDINGS: Five views. No evidence compression fracture. There is multilevel moderate-advanced disc space narrowing involvi ng all levels of the lumbosacral spine and there is also anterolisthesis of L5 upon S1 due to L5 pars defects. There is 1.5 cm anterior slippage of L5 upon S1 and there is moderate-advanced disc space narrowing also evident at this level. Mild facet joint arthropathy at multiple levels. SI joints un remarkable. There is a right hip prosthesis. Bone density normal. No osseous lesions. No signific ant scoliosis. IMPRESSION: Multilevel chronic degenerative disc disease. Anterolisthesis L5 upon S1 due to L5 pars defects. There is approximately 1.5 cm anterior slippage o f L5 upon S1 evident on the lateral view. Right hip prosthesis noted. DATA REPOSITORY: RADIATION DOSE DELIVERED:
--- NOTE | 2023-01-14 09:21 | DI.RAD_ITS ---
Exam(s) XR THORACIC SPINE COMPLETE EXAM: XR THORACIC SPINE COMPLETE CLINICAL HISTORY: thoracic pain,M54.6. TECHNIQUE: 2D digital imaging was performed. COMPARISON: No exams were available for comparison FINDINGS: 3 views No evidence of fracture or listhesis. Multilevel mild disc space narrowing and small osteophytes. N o abnormal widening of the paraspinal lines. No significant scoliosis evident. No lytic nor blastic osseous lesions identified. IMPRESSION: No acute osseous findings in the thoracic spinal column. DATA REPOSITORY: RADIATION DOSE DELIVERED:
== END ==
PROVIDERS: PCP Family Medicine; Visit Provider Family Medicine
DX: M53.3 Sacrococcygeal disorders, not elsewhere classified (principal); Z96.641 Presence of right artificial hip joint
CPT/HCPCS: 72072; 72110; 76700

== ENCOUNTER → 2023-01-23 03:12 | Outpatient (CLI) | payer MEDICARE, SELFPAY ==
--- NOTE | 2023-01-23 09:39 | DI.RAD_ITS ---
Exam(s) XR LUMBAR SPINE COMP W FLEX/EX EXAM: XR LUMBAR SPINE COMP W FLEX/EX CLINICAL HISTORY: ? slippage of spondylolisthesis,M43.00. TECHNIQUE: 2D digital imaging was performed of the lumbar spine. Eight images were obtained. AP, l ateral, flexion, extension right oblique, left oblique and L5-S1 spot views were obtained. COMPARISON: No exams were available for comparison FINDINGS: BONES: No fracture or destructive lesion. Endplate osteophytes are seen present from L1-L2 through L3 -L4. Degenerative changes of the facets are seen at L4-5 and L5-S1. The patient has a right total hip replacement which is partially imaged. DISKS: There is disc space narrowing throughout the lumbar spine with relative sparing at L3-4 and L4 -L5. ALIGNMENT: There is a very mild right convex curvature of the thoracolumbar spine. There is spondylo lysis of L5 and grade 1-2 spondylolisthesis of L5 on S1. There is also mild retrolisthesis of L2 on L3, L3 on L4 and L4 and L5. SOFT TISSUE: Atherosclerosis is present. IMPRESSION: 1. Moderately severe degenerative changes in the lumbar spine. 2. L5 spondylolysis and grade 1-2 spondylolisthesis of L5 on S1. 3. Mild retrolisthesis of L2 on L3, L3 on L4 and L4 on L5. DATA REPOSITORY: RADIATION DOSE DELIVERED:
== END ==
PROVIDERS: PCP Family Medicine; Visit Provider Family Medicine
DX: M43.07 Spondylolysis, lumbosacral region (principal)
CPT/HCPCS: 72114; 99203

== ENCOUNTER 2023-01-31 08:22 | Day surgery (SDC) | payer MEDICARE, SELFPAY ==
--- NOTE | 2023-01-30 21:48 | PDOC.DSDIS_ITS ---
Date of service: 01/31/23 Time of Service: 11:11 Discharge Plan Disposition Patient Disposition: Home Condition: Good Discharge Details Reason For Visit: EGD and colonoscopy Attending Provider: Robert Wills Primary Care Provider: Amparo Tom Home Meds and New Rx's Prescriptions: New psyllium Powder 1 tbsp PO DAILY Qty: 300 3RF Rx Instructions: mix into at least 8 oz of water or juice before administering. Start with using 1 tablespoon a day. Give it 1 week. If you are still having loose bowel movements, increase it to twice a day and repeat up to 3 times a day if needed. famotidine [Pepcid] 20 mg tablet 20 mg PO DAILY Qty: 30 3RF Rx Instructions: Take 1 tablet by mouth every day. Continued tadalafil [Cialis] 5 mg tablet 5 mg PO DAILY PRN Rx Instructions: PER UROLOGY at [facility] lisinopril 20 mg tablet 30 mg PO DAILY Qty: 135 4RF rosuvastatin [Crestor] 10 mg tablet 10 mg PO DAILY Qty: 90 4RF triamcinolone acetonide 0.5 % ointment 1 applic TP BID PRN amoxicillin 500 MG tablet 2 g PO ONCE Qty: 4 1RF Rx Instructions: Take 2grams one hour prior to dental work. ketoconazole 2 % cream 1 applic topical BID Qty: 30 0RF spironolactone 25 mg tablet 25 mg PO DAILY Qty: 90 3RF amlodipine 5 mg tablet 5 mg PO DAILY Qty: 90 3RF Discontinued polyethylene glycol 3350 17 gram/dose powder 238 g PO ONCE Qty: 238 0RF Rx Instructions: take per colonoscopy instructions bisacodyl [Dulcolax (bisacodyl)] 5 mg tablet,delayed release (DR/EC) 5 mg PO ONCE Qty: 4 0RF Rx Instructions: take per colonoscopy instructions Discharge Instructions Instructions: Diverticulosis (DC), Diet for Stomach Ulcers and Gastritis (GEN), Colorectal Polyps (GEN), Diverticulosis Diet (GEN) Additional Instructions: Arya, we were able to complete your procedures today without any difficulty your upper endoscopy showed just a tiny bit of inflammation in your stomach, as well as the first portion of your duodenum. I suspect this is just from some increased stomach acid production. I did do some biopsies through the area to assess for other causes. For now, I would like to start you on some Pepcid to see if that helps any of your abdominal discomfort or bloating type symptoms. You can take 1 pill every day and see how you feel. If it makes a difference we can continue it. Once I have the results from the biopsies, we might need to adjust this accordingly. Your colonoscopy also went very smoothly. You have fairly extensive sigmoid diverticulosis. Diverticula are little weak spots in the colon wall. They typically accumulate with stool and can become a little bit irritated. I suspect this might be causing some of your inconsistent bowel movements. Unfort unately, there is not a great treatment for this. I did attach some information here regarding some dietary changes that might help. Also, adding some fiber to your diet may help bulk your stools a bit, which may help reduce some of the symptoms. I provided a prescription for some psyllium. This is also available [id number] if you prefer. It tends to be the active ingredient in things like FiberCon or Metamucil. In the big picture, you should be getting about 25 to 30 g of protein in your diet every day. If you look carefully, you may see that different types of psyllium products contain different concentrations of fiber. A simple rule of thumb is to start with about 1 tablespoon of psyllium with 8 ounces of water every day, and increase this as needed until you have consistent soft bulky bowel movements. Similar to your upper endoscopy, I did perform biopsies of the colon to rule out other forms of colitis. I also found 1 small polyps that I removed. I did not see any features of it that seem worrisome. I will have it tested just to be safe. 1. If tolerated, consume a soft, low fiber diet for 1-2 days. 2. Do not drive, drink alcohol, operate machinery, make critical decisions, or do activities that require coordination or balance for 24 hours. 3. Because air was put into your colon during the procedure, expelling air from your rectum (passing gas or farting) is normal. 4. You may not have a bowel movement for 1-3 days because of the colonoscopy prep. This is normal. 5. You may experience a sore throat for 24 to 48 hours. You may use throat lozenges or gargle with warm salt water to relieve the discomfort. 6. Because air was put into your stomach during the procedure, you may experience some belching. 7. Go directly to the emergency room if you notice any of the following: Develop chills (warm to touch), or if you have a thermometer and your temperature is above 101 Difficulty breathing or difficultly swallowing Persistent vomiting Severe abdominal pain, other than gas cramps Severe chest pain Black, tarry stools Any bleeding ? exceeding one tablespoon 8. Call your physician if the site where your intravenous was started becomes r ed, swollen, painful, and warm to touch. 9. Your physician has reviewed your pre-procedure medications. Please continue to take those medications as previously ordered. You will be given specific info rmation/education regarding any changes to your medications before leaving. Activity:: Activity as Tolerated Diet:: As Tolerated Discharge Orders Discharge Orders: Discharge Order (Routine); Ordered 01/30/23 Ordered By: Robert Wills DS: Diagnosis Discharge Diagnosis (1) Diarrhea in adult patient: Status: Acute
--- NOTE | 2023-01-30 21:50 | ENDO_ITS ---
Date of service: 01/31/23 Time of Service: 11:18 Endoscopy Report DATE OF PROCEDURE: 01/31/23 PRE-OP DIAGNOSIS: Diarrhea POST-OP DIAGNOSIS: other (Gastritis, diverticulosis, colon polyp) PROCEDURE: EGD with biopsies and colonoscopy with biopsies and polypectomy SURGEON: Robert Wills ANESTHESIA TYPE: General:No Airway ESTIMATED BLOOD LOSS: 10 PATHOLOGY: other (Random biopsies of duodenum, gastric antrum and body, GE junction; 0.25 cm colon polyp at 120 cm from the anus, random colon biopsies.) COMPLICATIONS: None DISPOSITION: same day INDICATIONS: Arya is an 78-year-old male who is recently experienced a change in the character and frequency of his stools. Additionally, he has some gastroesophageal reflux symptoms that raise a concern for GERD PREP: Miralax/Dulcolax PROCEDURE START TIME: 10:16 PROCEDURE END TIME: 10:47 COLONOSCOPY RETRACTION TIME: 9 FINDINGS: Minimal irregularity of the GE junction extending from 39 to 40 cm, mild gastritis, mild duodenitis; extensive sigmoid diverticulosis, 0.25 cm colon polyp at 120 cm from the anus PROCEDURE DESCRIPTION: After the initiation of monitored anesthetic care, and with the assistance of a bite block, I advanced a standard gastroscope through the mouth past the hypopharynx and into the esophagus.? Under the direct vision of the scope, I advanced down the esophagus into the stomach.? Once I entered the stomach, I performed a brief inspection, followed by retroflexion towards the gastric cardia.? This appeared normal.? After that, I gently advanced the scope around the incisura angularis and examined the pylorus.? The incisura angularis, antrum, pylorus all appeared pretty normal. Next, I advanced the scope through the pylorus into the duodenum.? The mucosa was pink and healthy appearing.? Just within the duodenal bulb was a small area of inflammation that appeared consistent with a healed ulcer. It was well less than 0.25 cm. There were no features concerning for malignancy. Narrowband imaging was used to assist with visualization. I did perform a biopsy of this. I was able to visualize bile draining into the duodenum through the ampulla Vater. The rest of the duodenum appeared normal. I did perform some random biopsies of the duodenum using cold forceps. There was minimal bleeding. I then brought the camera back into the stomach. Again, using cold forceps I did random biopsies of the gastric antrum and body. This will be used to help rule out H. pylori. I then emptied the stomach, and brought the camera back up to the GE junction. Again there was just a tiny amount of irregularity extending from about 39 to 40 cm from the incisors. I did perform some biopsies of the GE junction. I then brought the camera up along the length of the esophagus was all appeared normal. Next, we moved Arya into the left lateral decubitus position I began by performing an external anorectal exam.? Perineum and skin were normal, as was the anal verge.? There was no evidence of external hemorrhoids.? Next, I performed a digital rectal exam.? I did not appreciate any abnormal findings.? Next, I advanced a colonoscope into the rectal vault.? I performed retroflexion.? This appeared normal. I did not see any signs of proctitis. The re were no signs of ulcerative colitis or Crohn's disease..? Using insufflation, I then advanced the colonoscope beyond the rectal folds and into the sigmoid colon before advancing towards the cecum.? There is extensive sigmoid diverticulosis. A majority of it is [place] and cavernous. I was able to navigate the true lumen without any difficulty.? The scope was noted to be in the cecum by identification of the ileocecal valve and appendiceal orifice.? I then began withdrawing the colonoscope using repeated irrigation as necessary for full evaluation of the colonic mucosa. Around 120 cm from the anus was a flat 0.25 cm polyp. This was removed with cold forceps. There was minimal bleeding. ?Once the scope was withdrawn to the level of the rectum, great care was taken to examine portions of the rectal folds. Again, the rectum appeared normal.? Because of the inconsistent nature of the patient's bowel movements, and in an effort to exclude microscopic colitis, I did perform random biopsies all along the length of the colon and rectum with cold forceps without any issue. Finally, the scope was withdrawn and the patient was brought to the same-day surgery recovery unit as the anesthetic wore off. ?The findings and instructions were shared with the patient prior to discharge. Quality of the bowel prep using the [place] prep score was 3, 3, 3 from left to right
[2023-01-31 08:26] VITALS: BP 131/70; PULSE 63; RESP 16; TEMP 36.5; O2SAT 100
[2023-01-31] MEDS: Lactated Ringers 1,000 ML 80 ML IV (09:31)
--- NOTE | 2023-01-31 09:32 | W.ANESPRE ---
General Info Date of Service Date Performed: 01/31/23 Height: 5 ft 9 in Weight: 81.7 kg Body Mass Index (BMI): 26.6 Surgical Procedure: Operation Date: 01/31/23 10:20 Proposed Procedure Side Surgeon p Colonoscopy/Gastroscopy Robert Wills MD Meds Allergies and Home Medications Allergies Allergy/AdvReac Type Severity Reaction Status Date / Time No Known Allergies Allergy Verified 01/31/23 08:42 Home Medication Medication Instructions Recorded amoxicillin 500 mg tablet 2 g PO ONCE #4 tab-caps 06/10/17 tadalafil 5 mg tablet (Cialis) 5 mg PO DAILY PRN 06/24/20 ketoconazole 2 % topical cream 1 applic topical BID #30 grams 07/13/20 spironolactone 25 mg tablet 25 mg PO DAILY #90 tabs 12/20/22 amlodipine 5 mg tablet 5 mg PO DAILY #90 tabs 12/24/22 lisinopril 20 mg tablet 30 mg (1.5 x 20 mg) PO DAILY #135 01/01/23 tab-caps rosuvastatin 10 mg tablet (Crestor) 10 mg PO DAILY #90 tabs 01/01/23 triamcinolone acetonide 0.5 % 1 applic topical BID PRN 01/23/23 topical ointment Current Visit Medications: Current Medications Generic Name Dose Route Start Last Admin Trade Name Freq PRN Reason Stop Dose Admin Hyoscyamine Sulfate 0.125 mg 01/30/23 21:50 Hyoscyamine 0.125 Mg Sl/Oral/Chew SL 03/01/23 21:49 DIRECTED PRN Ringer's Solution 1,000 mls @ 80 mls/hr 01/31/23 06:00 01/31/23 09:31 IV 03/01/23 23:59 80 mls/hr INFUSION ANISHA Administration IV Miscellaneous Supplies 1 each 01/31/23 06:00 Iv Access IV 03/01/23 23:59 DIRECTED ANISHA Ondansetron HCl 4 mg 01/30/23 21:50 Ondansetron 4 Mg/2 Ml Vial IVP 03/01/23 21:49 Q4H PRN PRN Nausea / Vomiting Sodium Chloride 0 ml 01/31/23 06:00 Normal Saline Flush 10 Ml Syr IV 03/01/23 23:59 PRN PRN Sodium Chloride 0 ml 01/31/23 06:00 Normal Saline 10 Ml Vial IJ 03/01/23 23:59 DIRECTED PRN Sterile Water 0 ml 01/31/23 06:00 Water,Injection,Sterile 10 Ml Vial IJ 03/01/23 23:59 DIRECTED PRN PFSH Active Problems Active Problems: Problem Status Onset Code Diarrhea in adult patient R19.7 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 Spondylolisthesis at L5-S1 level M43.17 Thoracic back pain M54.6 Belching R14.2 Diarrhea R19.7 Tubular adenoma of colon 04/22/17 D12.6 Sensorineural hearing loss 12/20/14 H90.5 Raised prostate specific antigen R97.20 Malignant neoplasm of skin C44.90 Hyperlipidemia E78.5 Hiatal hernia K44.9 Essential hypertension 01/27/13 I10 Medical History Medical History Left testicular pain Spinal stenosis surgery Primary osteoarthritis of right hip (11/07/15) total left hip replacement 11/26 History of tobacco use 12-35; 25 pack year Hemorrhoids Gout Surgical History Surgical History History of appendectomy History of arthroscopy of knee Status post vasectomy Vasectomy Total replacement of hip 2016(R) Skin Cancer Removal 2009,2012 Colonoscopy - MAC (04/22/17) Back surgery 2011 Arthroplasty of knee (~1997) right Appendectomy Tobacco Smoking/Tobacco Use Status: Former Tobacco Use Passive smoking exposure: No Alcohol Alcohol Intake: current Alcohol intake frequency: 0-2 drinks per day Alcohol type: beer, wine and hard liquor Substance Use Substance use: Never Substance use type: does not use Vital Signs and Lab Results Vital Signs Most Recent Vital Signs in EMR: Most Recent Vital Signs Temp Pulse Resp BP Pulse Ox 36.5 C 63 16 131/70 100 01/31/23 08:26 01/31/23 08:26 01/31/23 08:26 01/31/23 08:26 01/31/23 08:26 Lab Results Blood Type / Crossmatch: No Data to Display Complete Blood Count: No Data to Display Complete Metabolic Panel: No Data to Display Liver Function Panel: No Data to Display Coagulation Panel: No Data to Display Cardiac Panel: No Data to Display Arterial Blood Gas: No Data to Display Venous Blood Gas: No Data to Display Pancreas Panel: No Data to Display Thyroid Panel: No Data to Display Infectious Disease: No Data to Display Blood Cultures: No Data to Display Toxicology Panel: No Data to Display Imaging and Studies Imaging and Studies Study information below may be from another EMR and interpreted by another provider. Please see original notes in EMR for more complete details. Echocardiogram Summary: Reviewed Anesthesia Assessment and Plan Anesthesia History Personal History: No History of Anesthesia Complications Family History: No Family History of Anesthesia Complications Exercise Tolerance Exercise Tolerance: Metabolic Equivalents>4 Pertinent Negatives Pertinent Negatives: No Symptoms of GERD Cardiac & Pulmonary Exam Cardiac Exam: Normal S1/S2 Heart Sounds Pulmonary Exam: Clear Bilateral Breath Sounds Implantable Cardiac Device Does patient have a Pacemaker or an ICD?: No Airway Exam Known Difficult Airway: No Mallampati Class: 2 Mouth Opening: Normal (> 3cm) Thyromental Distance: Greater than 3 cm Neck Range of Motion: Full ROM Neck Circumference: Normal Teeth Condition: Normal Dentition ASA Classification ASA Score: ASA 2 Emergency Case?: No NPO Status NPO Status: NPO Clears >2 hours, Solids >8 hours Anesthesia Plan Resuscitation Status: Full Code Anesthesia Technique: General Anesthesia Airway Planned: Natural Airway Monitors Used: Standard Monitors
[2023-01-31 09:33] VITALS: BMI 26.6
--- NOTE | 2023-01-31 10:19 | BOWEL_PTH ---
PATIENT: Arya Kaur LOC: [facility] U#:[id number] AGE/SX: 78/M ROOM: RE01/31/[address]: Robert Wills MD : 1945 BED: DIS: 01/31/2023 SPEC #: [id number] RECD: 01/31/23 12:50 STATUS: AGUEDA RE #: [id number] IVONNE: 01/31/23 10:[address]: Robert Wills DEPT: Surgical Specimen RECD BY: Chelsea Valenzuela ENTERED: 01/31/23 12:51 SP TYPE: Bowel OTHR DR: Amparo Tom MD, DC Tissues: 1 - BIOPSY BOWEL 2 - STOMACH BIOPSY 3 - STOMACH BIOPSY 4 - ESOPHAGUS BIOPSY 5 - BIOPSY BOWEL 6 - BIOPSY BOWEL Procedures: GROSS AND MICRO LEVEL 4 Comments: [id number]
[2023-01-31 10:56] VITALS: BP 101/81; PULSE 55; RESP 16; TEMP 36.2; O2SAT 98
[2023-01-31 11:23] VITALS: BP 97/53; PULSE 58; RESP 16; TEMP 36.3; O2SAT 98
--- NOTE | 2023-01-31 11:46 | W.ANESPOSTOP ---
Postoperative Evaluation Date, Time and Location Date Performed: 01/31/23 Time Performed: 11:23 Patient Location: Day [facility] Unit Vital Signs Most Recent Imported Vital Signs: Most Recent Vital Signs Temp Pulse Resp BP Pulse Ox 36.3 C L 58 L 16 97/53 L 98 01/31/23 11:23 01/31/23 11:23 01/31/23 11:01/31/23 11:01/31/23 11:23 Pain Score Most Recent Pain Score: Most Recent Pain Score Pain Level 0 01/31/23 11:23 Assessment Mental Status: Awake (Alert & Oriented to Patient Baseline) Airway and Respiratory Function: Patent airway with normal (patient baseline) respiratory exam Cardiovascular Function: Hemodynamically Stable Hydration Status: Adequately Hydrated Nausea & Vomiting: No Nausea or Vomiting Pain: Pt. Denies Any Pain Peripheral Nerve Block: Patient did not receive a nerve block
== END 2023-01-31 11:59 | disposition home or self-care (01) ==
LOC: SUR 08:22
PROVIDERS: PCP Family Medicine; Visit Provider Surgery
PROC: (CPT 45380; principal; 2023-01-31 10:15)
DX: Z12.11 Encounter for screening for malignant neoplasm of colon (principal); Z86.010 Personal history of colon polyps; D12.3 Benign neoplasm of transverse colon; K57.30 Diverticulosis of large intestine without perforation or abscess without bleeding; K29.00 Acute gastritis without bleeding; R19.7 Diarrhea, unspecified; I10 Essential (primary) hypertension; K31.89 Other diseases of stomach and duodenum
CPT/HCPCS: 45380; 43239; 88305; J1100; J1885; J2001; J2405

== ENCOUNTER → 2023-02-22 01:43 | Outpatient (CLI) | payer MEDICARE, SELFPAY ==
--- NOTE | 2023-02-22 08:30 | DI.MRI_ITS ---
Exam(s) MR LUMBAR SPINE WO EXAM: MR LUMBAR SPINE WO CLINICAL HISTORY: severe DJD with bowel changes,spondylolisthesis L5-S1,m43.17,m47.16. TECHNIQUE: Multiplanar multisequence MRI of the Lumbar spine was performed. COMPARISON: MR MRI - LUMBAR SPINE WO CONTRAST from 07/27/2015 CR XR LUMBAR SPINE COMP W FLEX/EX from 01/23/2023 FINDINGS: Bones: The last intervertebral disc space is designated the L5/S1 level for the numbering purpose of this examination. The vertebral body heights are well maintained. There is 3 mm of retrolisthesis o f L4 on L5. There is also 2 mm retrolisthesis of L2 on L3 and L3 on L4. Mild degenerative endplate s ignal changes are present. There are endplate osteophytes at multiple levels. There is L5 spondylol ysis and grade 1 spondylolisthesis of L5 on S1. Cord: The conus tip ends at the T12 level. It is of normal size and signal intensity. T12-L1: There is a moderate size central disc herniation. No significant central spinal canal stenos is is seen. There is mild right neural foraminal stenosis. No significant left neural foraminal mojgan nosis. L1-2: There is a mild diffuse disc bulge. No central spinal canal or neural foraminal stenosis. L2-3: There is a prominent osteophyte and cyst disc herniation. There are degenerative changes of th e facets. These all contribute to cause marked central spinal canal stenosis. There is moderate samy ateral neural foraminal stenosis. L3-4: There is a diffuse disc bulge and a central disc herniation. There are degenerative changes of the facets. The findings cause moderately severe central spinal canal stenosis. Moderately severe bilateral neural foraminal stenosis is present. L4-5: No disc herniations or bulges are present. There are degenerative changes of the facets. No si gnificant central spinal canal stenosis is seen. There is marked bilateral neural foraminal stenosis . L5-S1: No disc herniations or bulges are present. There are degenerative changes of the facets. No s ignificant central spinal canal stenosis is seen. There is marked bilateral neural foraminal stenosi s. Soft tissues: The visualized SI joints and sacrum are well maintained. The paraspinal soft tissues ar e unremarkable. IMPRESSION: 1. Multilevel degenerative changes are seen throughout the lumbar spine. 2. Degenerative changes are most marked at L2-3 and L3-L4 resulting in central spinal canal and bilat eral neural foraminal stenosis which is moderate to severe. 3. L5-S1 grade 1 spondylolisthesis resulting in marked bilateral neural foraminal stenosis. 4. Degenerative changes at L4-L5 causing marked bilateral neural foraminal stenosis. DATA REPOSITORY:
== END ==
PROVIDERS: PCP Family Medicine; Visit Provider Family Medicine
DX: M43.17 Spondylolisthesis, lumbosacral region (principal); M47.16 Other spondylosis with myelopathy, lumbar region
CPT/HCPCS: 72148

== ENCOUNTER 2023-06-19 05:21 | Outpatient (CLI) | payer MEDICARE, SELFPAY ==
[2023-06-19 23:43] LABS: PSA, Diagnostic 3.7 ng/mL (<=6.5)
== END 2023-06-19 05:22 | disposition home or self-care (01) ==
PROVIDERS: PCP Family Medicine; Visit Provider Urology
DX: R97.20 Elevated prostate specific antigen [PSA] (principal)
CPT/HCPCS: 36415; 84153

== ENCOUNTER 2023-08-06 11:16 | Outpatient (CLI) | payer MEDICARE, SELFPAY ==
[2023-08-06 13:30] LABS: ALT 29 U/L (16-63); AST 23 U/L (15-37); Albumin 4.1 g/dL (3.4-5.0); Alkaline Phosphatase 69 U/L (46-116); Anion Gap 8.1 mmol/L (3-11); BUN 25 mg/dL (7-18); Bilirubin, Total 0.46 mg/dL (0.2-1.0); CO2 27.9 mmol/L (21.0-32.0); CREATININE 1.1 mg/dL (0.70-1.30); Calcium 9.9 mg/dL (8.5-10.1); Calculated LDL 58 mg/dL (<100); Chloride 104 mmol/L (98-107); Cholesterol 158 mg/dL (<200); Estimated GFR 67.86 (mL/min/1.73m2); Glucose 100 mg/dL (74-106); HDL Cholesterol 74 mg/dL (40-60); Potassium 4.4 mmol/L (3.5-5.1); Sodium 140 mmol/L (136-145); Total Protein 7.9 g/dL (6.4-8.2); Triglyceride 133 mg/dL (<150); Vitamin B12 263 pg/mL (193-986); Vitamin D 25 Total 20.2 ng/mL (30-100)
== END 2023-08-06 11:17 | disposition home or self-care (01) ==
LOC: LOS 11:16
PROVIDERS: PCP Family Medicine; Referring Provider Family Medicine; Visit Provider Family Medicine
DX: R53.83 Other fatigue (principal); I10 Essential (primary) hypertension; E55.9 Vitamin D deficiency, unspecified
CPT/HCPCS: 36415; 80053; 80061; 82306; 82607; 82746

== ENCOUNTER 2024-03-10 16:10 | Outpatient (CLI) | payer MEDICARE, SELFPAY ==
--- NOTE | 2024-03-10 15:00 | DI.RAD_ITS ---
Exam(s) XR CHEST 2V PA LATERAL EXAM: XR CHEST 2V PA LATERAL CLINICAL HISTORY: eval pna, cough, R05.9 TECHNIQUE: 2D digital imaging was performed of the chest. Two images were obtained. PA and lateral views were obtained. COMPARISON: No exams were available for comparison FINDINGS: MEDIASTINUM: Normal. HEART: Normal. PULMONARY VASCULATURE: Normal. LUNGS: The lungs appear hyperinflated suggesting underlying COPD. No focal consolidating infiltrates are seen. PLEURAL SPACE: No pleural effusion or pneumothorax. BONE:Within normal limits for the patient's age. OTHER FINDINGS:Normal. IMPRESSION: No acute pulmonary findings. DATA REPOSITORY: RADIATION DOSE DELIVERED:
== END 2024-03-10 16:30 ==
PROVIDERS: PCP Family Medicine; Visit Provider Nurse Practitioner Family
DX: R05.9 Cough, unspecified (principal)
CPT/HCPCS: 71046

== ENCOUNTER 2024-07-27 00:49 | Outpatient (CLI) | payer MEDICARE, SELFPAY ==
[2024-07-27 22:24] LABS: PSA, Diagnostic 3.4 ng/mL (<=6.5)
== END 2024-07-27 00:50 | disposition home or self-care (01) ==
LOC: LBO 00:49
PROVIDERS: PCP Family Medicine; Visit Provider Urology
DX: R97.20 Elevated prostate specific antigen [PSA] (principal)
CPT/HCPCS: 36415; 84153

== ENCOUNTER 2024-10-22 04:14 | Outpatient (CLI) | payer MEDICARE, SELFPAY ==
[2024-10-22 16:42] LABS: ALT 30 U/L (16-63); AST 26 U/L (15-37); Albumin 4.2 g/dL (3.4-5.0); Alkaline Phosphatase 85 U/L (46-116); Anion Gap 11.3 mmol/L (3-11); BUN 28 mg/dL (7-18); Bilirubin, Total 0.6 mg/dL (0.2-1.0); CO2 23.7 mmol/L (21.0-32.0); Calcium 10.1 mg/dL (8.5-10.1); Chloride 102 mmol/L (98-107); Estimated GFR 50.49 (mL/min/1.73m2); Glucose 116 mg/dL (74-106); Potassium 5.1 mmol/L (3.5-5.1); Sodium 137 mmol/L (136-145); Total Protein 8.2 g/dL (6.4-8.2)
[2024-10-22 17:39] LABS: Calculated LDL 59 mg/dL (<100); Cholesterol 139 mg/dL (<200); HDL Cholesterol 66 mg/dL (>or=40); Triglyceride 70 mg/dL (<150)
== END 2024-10-22 04:15 | disposition home or self-care (01) ==
LOC: LOS 04:14
PROVIDERS: PCP Family Medicine; Referring Provider Family Medicine; Visit Provider Family Medicine
DX: I10 Essential (primary) hypertension (principal)
CPT/HCPCS: 36415; 80053; 80061

== ENCOUNTER 2025-01-12 01:00 | Outpatient (CLI) | payer MEDICARE, SELFPAY ==
[2025-01-12 14:23] LABS: Vitamin D 25 Total 58 ng/mL (30-100)
[2025-01-12 14:24] LABS: Vitamin B12 1143 pg/mL (211-911)
[2025-01-12 14:26] LABS: ALT 31 U/L (10-49); AST 31 U/L (<34); Albumin 4.8 g/dL (3.2-5.0); Alkaline Phosphatase 71 U/L (46-116); Anion Gap 8.1 mmol/L (3-11); BUN 32 mg/dL (9-23); Bilirubin, Total 0.60 mg/dL (0.2-1.2); CO2 25.9 mmol/L (20.0-31.0); Calcium 10.2 mg/dL (8.3-10.6); Chloride 105 mmol/L (98-107); Glucose 109 mg/dL (74-106); Potassium 5.2 mmol/L (3.5-5.1); Sodium 139 mmol/L (136-145); Total Protein 8.2 g/dL (5.7-8.2)
[2025-01-12 15:32] LABS: Hemoglobin A1C 5.9 % (<5.7)
== END 2025-01-12 01:01 | disposition home or self-care (01) ==
LOC: LOS 01:00
PROVIDERS: PCP Family Medicine; Visit Provider Family Medicine
DX: R79.89 Other specified abnormal findings of blood chemistry (principal); E11.9 Type 2 diabetes mellitus without complications; I10 Essential (primary) hypertension; E55.9 Vitamin D deficiency, unspecified
CPT/HCPCS: 36415; 80053; 82306; 82607; 83036